=== PATIENT | male | born 1985 | race Two or more races ===

== ENCOUNTER 2025-04-18 11:30 | Outpatient (RCR) | payer MEDICAID, SELFPAY ==
--- NOTE | 2025-04-09 13:07 | PT.OIERPT ---
PT OP Initial Eval Patient Information Outpatient Physical Therapy Treatment Date: 04/09/25 Visit Reasons: RT ELBOW PAIN Medical Diagnosis: M77.11 Treatment Dx #1: R elbow pain Start of Care: 04/09/25 Date of Onset: 6 months ago Smoking Status Smoking Status: Never smoker Initial Assessment Subjective: Pt is 40 yr old bengali speaking male brought in by assisted living instructor for R elbow pain. She helps take him to appts. Pt lives with his dad and sister. He is not sure why the R elbow started hurting. Increased pain with changing clothes and dressing. 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 Pt ? has pain with resisted wrist extension, extensor tendon is TTP and pt has ? decreased manufacturing plant manager strength on R. Pt has positive testing for lateral ? epicondylitis and fair rehab potential to meet goals. Eval followed by HEP with materials. Short Term and Prison Goals 1. Ind with HEP ? 2. Improved manufacturing plant manager strength on R to 45 lbs ? 3. Improved wrist strength to 4+/5 without pain ? 4. Decreased TTP from mod to min of R lateral elbow Treatment Plan 1. Manual therapy ? 2. Therex ? 3. Modalities as indicated, moist heat, ice, estim Frequency and Duration: 2x a week for 12 visits plus the evaluation Certification Dates: 04/09/25 to 07/07/25 Procedure Charges OP PT Eval Mod Complex 30 minutes: Yes
--- NOTE | 2025-04-11 13:53 | PT.ODAYNRPT ---
PT Outpatient Daily Note OP Daily Note Outpatient Physical Therapy Treatment Date: 04/11/25 Visit Reasons: RT ELBOW PAIN Subjective: Same as time of evaluation Objective: See F/S for therex MT: STM lateral elbow x7' Assessment: Min/mod TTP of lateral elbow with MT Plan: Continue per POC Length of Time (minutes) of Treatment: 30 Minutes Procedure Charges Therapeutic Exercise 30 minutes: Yes
--- NOTE | 2025-04-16 12:52 | PT.ODAYNRPT ---
PT Outpatient Daily Note OP Daily Note Outpatient Physical Therapy Treatment Date: 04/16/25 Visit Reasons: RT ELBOW PAIN Subjective: Pt denies elbow pain at this time. Reports increase in pain when lifting objects. Objective: See F/S for therex performed Assessment: No pain to report during or post exercises; demo'd good mechanics. Min/mod TTP to lateral elbow with cross friction massage utilizing an ice cup. Plan: Continue with POC Length of Time (minutes) of Treatment: 30 Minutes Procedure Charges Therapeutic Exercise 30 minutes: Yes
--- NOTE | 2025-04-18 13:04 | PT.ODAYNRPT ---
PT Outpatient Daily Note OP Daily Note Outpatient Physical Therapy Treatment Date: 04/18/25 Visit Reasons: RT ELBOW PAIN Subjective: Pt reports R elbow is doing ok, no changes to report. Pt c/o clicking/popping with extending elbow. Objective: Please see flow sheet for ther ex list. Assessment: Pt tolerated interventions with no complaints of pain. Plan: Continue with POC. Length of Time (minutes) of Treatment: 30 Minutes Procedure Charges Therapeutic Exercise 30 minutes: Yes
== END 2025-04-23 23:59 | disposition home or self-care (01) ==
LOC: CPTX 11:30
PROVIDERS: PCP Nurse Practitioner Family; Referring Provider Nurse Practitioner Family; Visit Provider Nurse Practitioner Family
DX: M25.521 Pain in right elbow (principal)
CPT/HCPCS: 97110; 97162

== ENCOUNTER 2025-05-07 11:00 | Outpatient (RCR) | payer MEDICAID, SELFPAY ==
--- NOTE | 2025-04-29 14:16 | PT.ODAYNRPT ---
PT Outpatient Daily Note OP Daily Note Outpatient Physical Therapy Treatment Date: 04/29/25 Visit Reasons: RT elbow pain Subjective: Low elbow pain at this time. Reports increase in pain when lifting objects. Objective: See F/S for therex MT: STM lateral elbow x7' with [place] Assessment: Min/mod TTP to lateral elbow with STM Plan: Continue with POC Length of Time (minutes) of Treatment: 30 Minutes Procedure Charges Therapeutic Exercise 30 minutes: Yes
--- NOTE | 2025-05-01 14:36 | PT.ODAYNRPT ---
PT Outpatient Daily Note OP Daily Note Outpatient Physical Therapy Treatment Date: 05/01/25 Visit Reasons: RT elbow pain Subjective: Low elbow pain at this time. Reports increase in pain when lifting objects. Objective: See F/S for therex MT: STM lateral elbow x7' with [place]aston Assessment: Min/mod TTP to lateral elbow with STM Plan: Continue with POC Length of Time (minutes) of Treatment: 30 Minutes Procedure Charges Therapeutic Exercise 30 minutes: Yes
--- NOTE | 2025-05-07 11:28 | PT.ODAYNRPT ---
PT Outpatient Daily Note OP Daily Note Outpatient Physical Therapy Treatment Date: 05/07/25 Visit Reasons: RT elbow pain Subjective: Low elbow pain at this time. Reports increase in pain when lifting objects. Objective: See F/S for therex MT: STM lateral elbow x7' with [place]aston Assessment: Min/mod TTP to lateral elbow with STM Plan: Continue with POC Length of Time (minutes) of Treatment: 30 Minutes Procedure Charges Therapeutic Exercise 30 minutes: Yes
== END 2025-05-24 23:59 | disposition home or self-care (01) ==
LOC: CPTX 11:00
PROVIDERS: PCP Nurse Practitioner Family; Referring Provider Nurse Practitioner Family; Visit Provider Nurse Practitioner Family
DX: M25.521 Pain in right elbow (principal)
CPT/HCPCS: 97110

== ENCOUNTER 2025-06-03 12:44 | Outpatient (RCR) | payer MEDICAID, SELFPAY ==
--- NOTE | 2025-06-03 15:10 | PT.ODS1RPT ---
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 Plan: D/C with HEP Procedure Charges Therapeutic Exercise 30 minutes: Yes
== END 2025-06-23 23:59 | disposition home or self-care (01) ==
LOC: CPTX 12:44
PROVIDERS: PCP Nurse Practitioner Family; Referring Provider Nurse Practitioner Family; Visit Provider Nurse Practitioner Family
DX: M25.521 Pain in right elbow (principal); E11.9 Type 2 diabetes mellitus without complications
CPT/HCPCS: 97110